=== PATIENT | female | born 1990 | race Caucasian/White ===

== ENCOUNTER 2016-10-26 14:45 | Inpatient (IN) | payer OTHER ==
[~2016-10-26] VITALS: Ht 170.2 cm; Wt 80.5 kg
[~2016-10-26 14:45] MED LIST: FERR27TA; PREN1TAB49
[2016-10-26 15:44] LABS: BASOPHILS % 0.2 % (0.0-2.0); EOSINOPHILS # 0.2 10^3/ul (0.0-0.5); EOSINOPHILS % 1.5 % (0.0-7.0); HEMATOCRIT 35.1 % (37.0-47.0); HEMOGLOBIN 11.9 g/dl (12.0-16.0); LYMPHOCYTES # 1.5 10^3/ul (0.8-2.9); LYMPHOCYTES % 14.9 % (15.0-51.0); MEAN CORPUSCULAR HEMOGLOBIN 29.6 pg (29.0-33.0); MEAN CORPUSCULAR HGB CONC 33.9 g/dl (32.0-37.0); MEAN CORPUSCULAR VOLUME 87.3 fl (82.0-101.0); MONOCYTE # 0.7 10^3/ul (0.3-0.9); MONOCYTES % 7.2 % (0.0-11.0); NEUTROPHILS % 75.8 % (39.0-77.0); PLATELET COUNT 286 10^3/UL (140-415); RED BLOOD COUNT 4.02 10^6/ul (4.20-5.40); RED CELL DISTRIBUTION WIDTH 12.4 % (11.5-14.5); WHITE BLOOD COUNT 10.1 10^3/ul (4.8-10.8)
--- NOTE | 2016-10-26 15:58 | RADRPT ---
PROCEDURE: CERVICAL LENGTH ULTRASOUND CLINICAL INDICATION: Pre-term labor. TECHNIQUE: Trans-vaginal imaging of the cervical canal was performed utilizing ramachandran-scale imaging. Sagittal and transverse images were obtained. Trans-abdominal images were also obtained. The michele ges were reviewed on a PACS workstation. COMPARISON: None. FINDINGS: The cervix is closed with a length of 4.9 cm. There is a single live intrauterine . heart rate is 154 beats per minute. Position is cephalic and placenta is posterior, grade 1. IMPRESSION: 1. Cervical length measures 4.9 cm. RPTAT: HFN .Shawnee Joy MD, MD Date Time Electronically viewed and signed by .Shawnee Joy MD, MD on 10/26/2016 15:57 .N/
[2016-10-26 16:05] LABS: ADD UMIC YES; UR ASCORBIC ACID NEGATIVE (NEGATIVE); UR BILIRUBIN (Dip) NEGATIVE (NEGATIVE); UR BLOOD (Dip) 1+ mg/dL (NEGATIVE); UR CLARITY SLIGHTLY CLOUDY (CLEAR); UR COLOR YELLOW (YELLOW); UR GLUCOSE (Dip) NEGATIVE (NEGATIVE); UR KETONES (Dip) NEGATIVE (NEGATIVE); UR LEUKOCYTE ESTERASE (Dip) 2+ Leu/ul (NEGATIVE); UR MUCUS FEW /HPF (NONE SEEN); UR NITRITE (Dip) NEGATIVE (NEGATIVE); UR RBC 3 /HPF (0-5); UR SPECIFIC GRAVITY (Dip) 1.026 (1.003-1.030); UR SQUAMOUS EPITHELIAL CELL FEW /HPF (FEW); UR TOTAL PROTEIN (Dip) 1+ mg/dl (NEGATIVE); UR UROBILINOGEN (Dip) NEGATIVE (NEGATIVE)
--- NOTE | 2016-10-26 17:27 | PN ---
Triage Information Date/Time Reason for visit: Abd/pelvic pain Weeks of Gestation 33 weeks /Para Diabetes: none Hypertention: none Objective Heart Rate: 130's Heart Rate Comments Two episode of heart decelerations noted Contractions: None Exam Cervix closed Results/Medications Result Diagram: 10/26/16 1512 Results 24 hrs Laboratory Tests Test 10/26/16 15:10 10/26/16 15:12 Urine Color YELLOW Urine Clarity SLIGHTLY CLOUDY A Urine pH 6.0 Urine Specific [place] 1.026 Urine Ketones NEGATIVE Urine Nitrite NEGATIVE Urine Bilirubin NEGATIVE Urine Urobilinogen NEGATIVE Urine Leukocyte Esterase 2+ H Urine Microscopic RBC 3 Urine Microscopic WBC 16 H Urine Squamous Epithelial Cells FEW Urine Mucus FEW A Urine Hemoglobin 1+ H Urine Glucose NEGATIVE Urine Total Protein 1+ H White Blood Count 10.1 Red Blood Count 4.02 L Hemoglobin 11.9 L Hematocrit 35.1 L Mean Corpuscular Volume 87.3 Mean Corpuscular Hemoglobin 29.6 Mean Corpuscular Hemoglobin Concent 33.9 Red Cell Distribution Width 12.4 Platelet Count 286 Mean Platelet Volume 10.0 Neutrophils % 75.8 Lymphocytes % 14.9 L Monocytes % 7.2 Eosinophils % 1.5 Basophils % 0.2 Nucleated Red Blood Cells % 0.0 Neutrophils # (Manual) 7.6 H Lymphocytes # 1.5 Monocytes # 0.7 Eosinophils # 0.2 Basophils # 0.0 Nucleated Red Blood Cells # 0.0 Imaging Results Cervical length 4.9 cm Disposition: Assessment/Plan No sign of labor. Continue to monitor heart tones. BPP to be done. OSMIN MARTINEZ MD Oct 26, 2016 17:27
--- NOTE | 2016-10-26 17:40 | RADRPT ---
PROCEDURE: US OB biophysical profile. CLINICAL INDICATION: evaluation TECHNIQUE: Multiple sonographic images of the pelvis were obtained. The images were reviewed on a PACS workstation. COMPARISON: No prior studies are available for comparison. FINDINGS: There is a single viable intrauterine gestation. Cardiac activity is present with 148 beats per min daniel. There is a vertex presentation. The placenta is posterior and fundal in location. There is no evidence of placental abruption. There is a normal amount of amniotic fluid with an CARRIE = 11.5 cm. Biophysical profile: movement 2/2 tone 2/2. breathing 2/2 CARRIE 2/2 Total 09/23 RPTAT: AA . IMPRESSION: Normal biophysical profile. Physician Emma Date Time Electronically viewed and signed by Physician Emma on 10/26/2016 17:40 /
[2016-10-26 20:54] VITALS: Ht 170.2 cm; Wt 80.5 kg
[2016-10-26 20:56] VITALS: BP 126/56; PULSE 75; RESP 18
[2016-10-27] MEDS: LACTATED RINGER'S 1,000 ML IV PRN ×3 (02:07→17:07)
[2016-10-27] MEDS: PRENATAL VITAMIN PO SCH (09:14)
--- NOTE | 2016-10-27 15:18 | RADRPT ---
PROCEDURE: OB ultrasound CLINICAL INDICATION: heart rate decelerations TECHNIQUE: Multiple transverse and longitudinal OB images of the pelvis were obtained. The images were reviewed on a high-resolution PACS workstation. COMPARISON: 10/26/2016 FINDINGS: A single live intrauterine is seen. The presentation is transverse and right maternal. Th e placenta is grade 2 and fundal and posterior in location. No evidence of placenta abruption or pre via is seen. The heart rate is 123 beats per minute. The amniotic fluid index is 12.97 cm. movement 2 tone 2 breathing 2 Amniotic fluid 2 IMPRESSION: Biophysical profile of 09/23. RPTAT: HPNM Physician Hoda Date Time Electronically viewed and signed by Physician Hoda on 10/27/2016 15:18 /
--- NOTE | 2016-10-27 19:21 | HP ---
Date/Time of Note Date/Time of Note DATE: 10/27/16 TIME: 19:16 OB - History Hx of Present Chief Complaint: pelvic pain Estimated Due Date: Dec 10, 2016 : 2 Para: 1 Spontaneous : 0 Therapeutic : 0 Care: Other (records not available) Ultrasounds: Other (records not available) Obstetrical Complications: None Medical Complications: None Past Family/Social History * Past Medical, Surgical, Family and Obstetric Histories reviewed from chart. OB Admission Exam Vital Signs Vital Signs Vital Signs Date Time Temp Pulse Resp B/P Pulse Ox O2 Delivery O2 Flow Rate FiO2 10/26/16 20:56 98.2 75 18 126/56 Room Air Physical Exam HEENT: WNL Heart: Rhythm Normal Lungs: Clear, Equal Abdomen: WNL Extremities: Normal Reflexes: Normal Heart Rate: 130's Accelerations: Accelerations Present Decelerations: Prolonged Decelerations Varibility: Moderate Contractions on Admission: None Last 72 hours Lab Results CBC & BMP 10/26/16 15:12 OB Assessment/Plan Reason for admission: other ( heart decelerations) Plan: Other Other plan: Admit Continuous monitoring Perinatology consult OSMIN MARTINEZ MD Oct 27, 2016 19:20
--- NOTE | 2016-10-27 19:23 | QN ---
Documentation Comment No complaint Afebrile VSS Strip Reactive with rare heart decelerations Per recommendation of Perinatology continue to monitor. OSMIN MARTINEZ MD Oct 27, 2016 19:23
--- NOTE | 2016-10-27 22:39 | NEURPT ---
DATE: 10/27/2016 HISTORY: The patient presented with complaining of pelvic pressure. However, it was determined that she is not in labor, but upon monitoring she had some spontaneous deceleration. fetus has some spontaneous deceleration and the decision was made to keep the patient in-house. Overnight she had about 3 or 4 spontaneous deceleration, but in general heart tones reassuring. RECOMMENDATION: I do recommend to keep the patient in-house for at least 24 more hours and to monitor for the frequency of this spontaneous Decels. At this time delivery is not recommended. Dictated By: Lesli Thornton MD /yomaira/mitch /Document#: [id number]
[2016-10-28 09:23] LABS: ADD UMIC YES; UR ASCORBIC ACID NEGATIVE (NEGATIVE); UR BILIRUBIN (Dip) NEGATIVE (NEGATIVE); UR BLOOD (Dip) NEGATIVE (NEGATIVE); UR CLARITY CLEAR (CLEAR); UR COLOR YELLOW (YELLOW); UR GLUCOSE (Dip) NEGATIVE (NEGATIVE); UR KETONES (Dip) NEGATIVE (NEGATIVE); UR LEUKOCYTE ESTERASE (Dip) 2+ Leu/ul (NEGATIVE); UR MUCUS FEW /HPF (NONE SEEN); UR NITRITE (Dip) NEGATIVE (NEGATIVE); UR RBC 2 /HPF (0-5); UR SPECIFIC GRAVITY (Dip) 1.012 (1.003-1.030); UR SQUAMOUS EPITHELIAL CELL FEW /HPF (FEW); UR TOTAL PROTEIN (Dip) NEGATIVE (NEGATIVE); UR UROBILINOGEN (Dip) NEGATIVE (NEGATIVE)
[2016-10-28] MEDS: PRENATAL VITAMIN PO SCH (09:41)
[2016-10-28] MEDS ORDERED: BETAMET NA PHOS/AC(6 MG/ML) 5ML INJ IM ONE (12:30)
[2016-10-28] MEDS ORDERED: BETAMET NA PHOS/AC(6 MG/ML) 5ML INJ ONE (12:47)
--- NOTE | 2016-10-28 20:19 | QN ---
Documentation Comment No complaint Afebrile VSS Strip Reactive with occasional heart decelerations Case discussed with Dr Thornton who recommends to keep the patient in hospital and togive acourse of betamethasone. OSMIN MARTINEZ MD Oct 28, 2016 20:18
--- NOTE | 2016-10-29 05:33 | NEURPT ---
DATE: 10/28/2016 SUBJECTIVE DATA: I reviewed heart tone and the frequency of the spontaneous decelerations have decreased. However, the baby still has occasional deceleration, lasting for about 2-3 minutes. I do believe this is secondary to nuchal cord. Given the fact that she still continues to have a spontaneous deceleration, lasting a long time and dropping about 40 or 50 below baseline, I do recommend patient to stay inpatient until heart tone continues to be reassuring; however, without those decelerations. Also, I do recommend administration of betamethasone. So until further notice, patient is to stay in- house for monitoring. Dictated By: Lesli Thornton MD /yomaira/joao /Document#: [id number]
--- NOTE | 2016-10-29 05:37 | RADRPT ---
PROCEDURE: OB ultrasound for biophysical profile CLINICAL INDICATION: Deceleration TECHNIQUE: Multiple sonographic images of the pelvis were obtained. Transabdominal views of the g ravid uterus are available for review. The images were reviewed on a PACS workstation. COMPARISON: None FINDINGS: breathing movement = 2/2 tone = 2/2 motion = 2/2 CARRIE = 2/2 CARRIE = 9.2 cm Single live intrauterine with cardiac activity of 144 bpm. position is cephal ic. The placenta is posterior. IMPRESSION: 1. Single live intrauterine gestation. 2. Biophysical profile = 8/8. 3. CARRIE = 9.2 cm. RPTAT: HH .Allison Bar MD, MD Date Time Electronically viewed and signed by .Allison Bar MD, on 10/29/2016 05:36 .G/
--- NOTE | 2016-10-29 09:16 | RADRPT ---
PROCEDURE: US OB. CLINICAL INDICATION: Decelerations TECHNIQUE: Multiple sonographic images of the pelvis were obtained. Transabdominal imaging only w as performed. The images were reviewed on a PACS workstation. COMPARISON: Ultrasound, 10/29/2016 FINDINGS: Single intrauterine gestation. Cephalic presentation. heart rate is 129 bpm. Measurements were made in order to determine age. The results are as follows: BPD = 8.24 cm HC = 30.15 cm AC = 27.71 cm FL = 5.59 cm Gestational age is 32 weeks 0 days and BRII is 12/24/2016 by ultrasound criteria. Gestational age is 34 weeks 0 days and BRII is 12/10/2016 by LMP. EFW = 1745 g +/- 262 g (less than 3 %). The placenta is posterior fundal. There is no evidence for an abruption or placenta previa. IMPRESSION: 1. Single live intrauterine gestation of approximately 32 weeks 0 days by ultrasound criteria. RPTAT: PP .Armand Bragg MD, MD Date Time Electronically viewed and signed by .Armand Bragg MD, on 10/29/2016 09:16 .R/
--- NOTE | 2016-10-29 12:16 | RADRPT ---
PROCEDURE: Umbilical artery Doppler. CLINICAL INDICATION: Small for gestational age. TECHNIQUE: Multiple sonographic images of the gravid uterus were obtained utilizing ramachandran-scale michele ging. Sagittal and transverse images were obtained. Umbilical artery Doppler was performed. The i mages were reviewed on a PACS workstation. COMPARISON: No prior studies are available for comparison. FINDINGS: There is a single live intrauterine . heart rate is 116 beats per minute. Position is cephalic and placenta is posterior grade 1. The umbilical artery systolic to diastolic ratio is 2.8. IMPRESSION: 1. The umbilical artery systolic to diastolic ratio is 2.8. RPTAT: QQ .Zach Rogel MD, MD Date Time Electronically viewed and signed by .Zach Rogel MD, MD on 10/29/2016 12:15 .R/
[2016-10-29] MEDS ORDERED: BETAMET NA PHOS/AC(6 MG/ML) 5ML INJ IM ONE (12:55)
--- NOTE | 2016-10-29 13:03 | QN ---
Documentation Job number: Neonatology consultation Comment I was asked to talk with his mother who was 34 weeks by estimated gestational age and 32 weeks by ultrasound with an estimated weight of 1745 g 262 g. Mother is a 25-year-old 2 para 1 with a blood type B+, HBsAg negative HIV negative and GBS not done. RPR was also not recorded. Mother was admitted with significant decelerations and perinatologist consultation was obtained and the nuchal cord was noted. Mother received the first dose of betamethasone on 10/28 at 1309 hrs. and will receive the second dose today. I discussed with the mother about the fetus being about 34 weeks with risk for respiratory distress including transient tachypnea of the and hyaline membrane disease. Discussed the treatment options including oxygen administration and bubble CPAP if has more respiratory distress and surfactant administration if clinically indicated and needed. Also discussed about low incidence of apnea prematurity. Discussed about the to be n.p.o. initially to be started on IV nutrition and subsequently to be started on tube feedings and increase gradually and monitor for feeding intolerance as well as gastroesophageal reflux. Also discussed about increased risk of infection as well as risk for hyperbilirubinemia and treatment with phototherapy and developed light imbalance. Discussed about length of stay of 2-3 weeks or longer depending on the infant's feeding ability, maintaining temperature off outside the [place] and being able to eat and gaining weight.Discussed about good prognosis and answered all mother's questions. Discussion was complete and concluded after mother had no further questions. Thank you for involving us in the care of the infant. CHHAYA GARCIA MD Oct 29, 2016 13:03
--- NOTE | 2016-10-29 13:24 | QN ---
Documentation Comment No complaint Afebrile VSS Strip Reactive with occasional heart deceleration Continue care per Perinatology. OSMIN MARTINEZ MD Oct 29, 2016 13:24
[2016-10-29] MEDS: LACTATED RINGER'S 1,000 ML IV SCH (13:26)
[2016-10-29 13:46] LABS: BASOPHILS % 0.1 % (0.0-2.0); HEMATOCRIT 31.9 % (37.0-47.0); HEMOGLOBIN 10.9 g/dl (12.0-16.0); LYMPHOCYTES # 1.4 10^3/ul (0.8-2.9); LYMPHOCYTES % 11.4 % (15.0-51.0); MEAN CORPUSCULAR HEMOGLOBIN 30.2 pg (29.0-33.0); MEAN CORPUSCULAR HGB CONC 34.2 g/dl (32.0-37.0); MEAN CORPUSCULAR VOLUME 88.4 fl (82.0-101.0); MEAN PLATELET VOLUME 10.2 fl (7.4-10.4); MONOCYTE # 0.7 10^3/ul (0.3-0.9); MONOCYTES % 5.8 % (0.0-11.0); NEUTROPHIL # 10.3 10^3/ul (1.6-7.5); NEUTROPHILS % 82.1 % (39.0-77.0); PLATELET COUNT 292 10^3/UL (140-415); RED BLOOD COUNT 3.61 10^6/ul (4.20-5.40); RED CELL DISTRIBUTION WIDTH 12.2 % (11.5-14.5); WHITE BLOOD COUNT 12.6 10^3/ul (4.8-10.8)
[2016-10-29 14:11] LABS: INR 1.01; PROTIME 13.3 Sec (12.2-14.2)
[2016-10-29 14:12] LABS: PARTIAL THROMBOPLASTIN TIME 25.8 Sec (25.0-35.0)
[2016-10-29] MEDS: PRENATAL VITAMIN PO SCH (16:55)
--- NOTE | 2016-10-30 05:23 | CONS ---
DATE OF ADMISSION: 10/26/2016 DATE OF CONSULTATION: 10/29/2016 HISTORY OF PRESENT ILLNESS: I reviewed the patient's strip again. The frequency of decelerations has increased. However, overall in between baby is reassuring. She had been experiencing some contractions overnight. However, she is currently stable. She was given betamethasone, the first dose yesterday and the second dose is due at 1 p.m. today. She has had urinary tract infection in the past, which has not appropriately been treated. Urine culture is pending. RECOMMENDATIONS: Continue with the same management, second dose of betamethasone. Follow up on the urine culture and treat as needed. Also, in case she does experience contractions regularly, magnesium sulfate can be considered as long as it is given 24 hours after the second dose of betamethasone. Now if the frequency of the decelerations increases or overall in between decelerations heart tone is nonreassuring, then delivery should be considered. Otherwise, we will continue with expected management in-house. Dictated By: Lesli Thornton MD /yomaira/carlos alberto /Document#: [id number]
[2016-10-30] MEDS: FERROUS SULFATE (EC) 325 MG TAB PO SCH ×2 (09:29→21:28)
[2016-10-30] MEDS: PRENATAL VITAMIN PO SCH (09:30)
--- NOTE | 2016-10-30 20:27 | QN ---
Documentation Comment No complaint Afebrile VSS Strip Reactive with rare heart decelerations Will start IV vancomycin for UTI Continue care per Perinatology OSMIN MARTINEZ MD Oct 30, 2016 20:27
[2016-10-30] MEDS ORDERED: VANCOMYCIN IV PER PHARMACY XX SCH (20:30)
[2016-10-30] MEDS ORDERED: VANCOMYCIN 1.5 GM in SOD CHLORIDE 0.9% 250 ML IVPB SCH (21:00)
[2016-10-30] MEDS: LACTATED RINGER'S 1,000 ML IV SCH (21:32)
[2016-10-30 21:57] LABS: CREATININE 0.51 mg/dl (0.44-1.00)
[2016-10-31] MEDS: VANCOMYCIN 1 GM in NS 250 ML IVPB SCH ×3 (05:05→21:21)
[2016-10-31] MEDS: PRENATAL VITAMIN PO SCH (09:00)
[2016-10-31] MEDS: FERROUS SULFATE (EC) 325 MG TAB PO SCH ×2 (09:00→21:05)
[2016-10-31] MEDS: LACTATED RINGER'S 1,000 ML IV SCH (17:10)
--- NOTE | 2016-10-31 19:34 | QN ---
Documentation Comment No complaint Afebrile VSS Strip Reactive with rare heart deceleration Continue in hospital care per Perinatology. OSMIN MARTINEZ MD Oct 31, 2016 19:34
[2016-11-01] MEDS: VANCOMYCIN 1.5 GM in SOD CHLORIDE 0.9% 250 ML IVPB SCH ×3 (04:01→20:31)
--- NOTE | 2016-11-01 07:26 | RADRPT ---
PROCEDURE: US biophysical profile. CLINICAL INDICATION: cardiac deceleration. TECHNIQUE: Multiple sonographic images of the uterus were obtained. The images were revi ewed on a PACS workstation. COMPARISON: No prior studies are available for comparison. FINDINGS: There is a single live intrauterine gestation. heart rate is 125 beats per minute. The position is breech. The placenta is posterior grade 1 with no abruption or previa. The CARRIE is 12.2 cm. (Normal = 5-20 cm.) Breathing Movement: 2 Gross Body Movement: 2 Tone: 2 Qualitative Amniotic Fluid Volume: 2 TOTAL: 8 IMPRESSION: 1. The biophysical score is 8/8. 2. Position is breech. RPTAT: QQ .Zach Rogel MD, Date Time Electronically viewed and signed by .Zach Rogel MD, on 11/01/2016 07:25 .R/
[2016-11-01] MEDS: FERROUS SULFATE (EC) 325 MG TAB PO SCH ×2 (09:03→21:00)
[2016-11-01] MEDS: PRENATAL VITAMIN PO SCH (09:03)
[2016-11-01] MEDS: LACTATED RINGER'S 1,000 ML IV SCH (13:00)
--- NOTE | 2016-11-01 18:02 | QN ---
Documentation Comment No complaint Afebrile VSS Strip Reactive with rare deceleration BPP 8/8 Continue in hospital care per Perinatology. OSMIN MARTINEZ MD Nov 01, 2016 18:02
[2016-11-02] MEDS: VANCOMYCIN 1.5 GM in SOD CHLORIDE 0.9% 250 ML IVPB SCH ×3 (04:08→20:56)
[2016-11-02] MEDS: LACTATED RINGER'S 1,000 ML IV SCH ×2 (06:32→16:40)
[2016-11-02] MEDS: PRENATAL VITAMIN PO SCH (09:15)
[2016-11-02] MEDS: FERROUS SULFATE (EC) 325 MG TAB PO SCH ×2 (09:15→21:00)
--- NOTE | 2016-11-02 17:51 | QN ---
Documentation Comment No complaint Afebrile VSS Strip reactive with occasional heart decelerations last night Continue care per Perinatology. OSMIN MARTINEZ MD Nov 02, 2016 17:51
[2016-11-03] MEDS: VANCOMYCIN 1.5 GM in SOD CHLORIDE 0.9% 250 ML IVPB SCH ×3 (04:18→20:25)
[2016-11-03] MEDS: FERROUS SULFATE (EC) 325 MG TAB PO SCH ×2 (09:12→20:35)
[2016-11-03] MEDS: PRENATAL VITAMIN PO SCH (09:12)
[2016-11-03] MEDS: LACTATED RINGER'S 1,000 ML IV SCH (11:01)
--- NOTE | 2016-11-03 20:47 | QN ---
Documentation Comment No complaint Afebrile VSS Strip Reactive with occasional heart decelerations Continue with in hospital care per Perinatology. OSMIN MARTINEZ MD Nov 03, 2016 20:47
[2016-11-04] MEDS: VANCOMYCIN 1.5 GM in SOD CHLORIDE 0.9% 250 ML IVPB SCH ×3 (03:50→20:50)
[2016-11-04] MEDS: LACTATED RINGER'S 1,000 ML IV SCH (06:33)
[2016-11-04] MEDS: FERROUS SULFATE (EC) 325 MG TAB PO SCH ×2 (09:55→21:27)
[2016-11-04] MEDS: PRENATAL VITAMIN PO SCH (09:56)
--- NOTE | 2016-11-04 11:19 | RADRPT ---
PROCEDURE: US OB biophysical profile. CLINICAL INDICATION: decreased movements, IUGR TECHNIQUE: Multiple sonographic images of the pelvis were obtained. The images were reviewed on a PACS workstation. COMPARISON: No prior studies are available for comparison. FINDINGS: There is a single viable intrauterine gestation. Cardiac activity is present with 142 beats per min daniel. There is a vertex presentation. The placenta is posterior. There is no evidence of placental abruption. There is a normal amount of amniotic fluid with an CARRIE = 11.5 cm. Biophysical profile: movement 2/2 tone 2/2. breathing 2/2 CARRIE 2/2 Total 09/23 RPTAT: AA . IMPRESSION: Normal biophysical profile. . .Tyrel Joshi MD, MD Date Time Electronically viewed and signed by .Tyrel Joshi MD, MD on 11/04/2016 11:19 .S/
--- NOTE | 2016-11-04 12:25 | QN ---
Documentation Comment No complaint Afebrile VSS Strip Reactive with occasional heart deceleration BPP 8/8 Continue care per Perinatology. OSMIN MARTINEZ MD Nov 04, 2016 12:25
[2016-11-05] MEDS: LACTATED RINGER'S 1,000 ML IV SCH ×2 (02:05→22:30)
[2016-11-05] MEDS: VANCOMYCIN 1.5 GM in SOD CHLORIDE 0.9% 250 ML IVPB SCH ×3 (04:25→19:54)
--- NOTE | 2016-11-05 07:48 | RADRPT ---
PROCEDURE: Limited OB ultrasound CLINICAL INDICATION: IUGR TECHNIQUE: Sonographic evaluation to assess the umbilical artery was performed. Transabdominal im aging of the gravid uterus was performed. COMPARISON: OB ultrasound dated 11/04/2016 FINDINGS: There is a single live intrauterine with cardiac activity, with a heart rate o f 129 bpm. The peak systolic velocity at the level of the cord insertion is 56.2 cm/sec. The end-d iastolic velocity is 21.5 cm/sec. The S/D ratio is 2.6. IMPRESSION: 1. Single live intrauterine . 2. Peak systolic velocity of 56.2 cm/s, end-diastolic velocity of 21.5 cm/s, and S/D ratio of 2.6. RPTAT: HH .Allison Bar MD, Date Time Electronically viewed and signed by .Allison Bar MD, on 11/05/2016 07:48 .G/
[2016-11-05] MEDS: PRENATAL VITAMIN PO SCH (08:41)
[2016-11-05] MEDS: FERROUS SULFATE (EC) 325 MG TAB PO SCH ×2 (08:41→20:51)
[2016-11-05] MEDS: AL HYDROX/MG HYDROX/SIMETH 30 ML CUP PO PRN (09:00)
--- NOTE | 2016-11-05 15:41 | QN ---
Documentation Comment No complaint Afebrile VSS Strip Reactive Continue with present care. OSMIN MARTINEZ MD Nov 05, 2016 15:41
[2016-11-06] MEDS: VANCOMYCIN 1.5 GM in SOD CHLORIDE 0.9% 250 ML IVPB SCH ×3 (04:02→20:06)
[2016-11-06] MEDS: PRENATAL VITAMIN PO SCH (09:57)
[2016-11-06] MEDS: FERROUS SULFATE (EC) 325 MG TAB PO SCH ×2 (09:57→20:54)
--- NOTE | 2016-11-06 16:59 | QN ---
Documentation Comment iup 35 weeks IUGR vss cat I tracing a/p iup 35 weeks continue care FILIPPO HINES MD Nov 06, 2016 16:59
[2016-11-06] MEDS: LACTATED RINGER'S 1,000 ML IV SCH (18:17)
[2016-11-07] MEDS: LACTATED RINGER'S 1,000 ML IV SCH (00:47)
[2016-11-07] MEDS: AL HYDROX/MG HYDROX/SIMETH 30 ML CUP PO PRN (08:38)
[2016-11-07] MEDS: PRENATAL VITAMIN PO SCH (08:38)
[2016-11-07] MEDS: FERROUS SULFATE (EC) 325 MG TAB PO SCH ×2 (08:38→23:58)
--- NOTE | 2016-11-07 11:08 | RADRPT ---
PROCEDURE: US OB biophysical profile. CLINICAL INDICATION: decreased movements TECHNIQUE: Multiple sonographic images of the pelvis were obtained. The images were reviewed on a PACS workstation. COMPARISON: US PELVIS 11/04/2016 FINDINGS: There is a single viable intrauterine gestation. Cardiac activity is present with 166 beats per min [place]. There is a breech presentation. The placenta is posterior. There is no evidence of placental abruption. There is a normal amount of amniotic fluid with an CARRIE = 12.5 cm. Biophysical profile: movement 2/2 tone 2/2. breathing 2/2 CARRIE 2/2 Total 09/23 RPTAT: AA . IMPRESSION: Normal biophysical profile. . .Tyrel Joshi MD, MD Date Time Electronically viewed and signed by .Tyrel Joshi MD, MD on 11/07/2016 11:08 .S/
--- NOTE | 2016-11-07 19:16 | QN ---
Documentation Comment No complaint Afebrile VSS Strip reactive BPP 09/23 Continue care per Perinatology. OSMIN MARTINEZ MD Nov 07, 2016 19:16
[2016-11-08] MEDS: FERROUS SULFATE (EC) 325 MG TAB PO SCH ×2 (08:57→20:59)
[2016-11-08] MEDS: PRENATAL VITAMIN PO SCH (08:57)
--- NOTE | 2016-11-08 17:42 | QN ---
Documentation Comment No complaint Afebrile VSS Strip Reactive with occasional heart decelerations Continue care per Perinatology. OSMIN MARTINEZ MD Nov 08, 2016 17:42
[2016-11-09] MEDS: FERROUS SULFATE (EC) 325 MG TAB PO SCH ×2 (08:54→20:51)
[2016-11-09] MEDS: PRENATAL VITAMIN PO SCH (08:54)
--- NOTE | 2016-11-09 16:45 | QN ---
Documentation Comment No complaint Afebrile VSS Strip Reactive with occasional deceleration Continue present care. OSMIN MARTINEZ MD Nov 09, 2016 16:45
--- NOTE | 2016-11-10 07:36 | RADRPT ---
PROCEDURE: OB ultrasound for biophysical profile CLINICAL INDICATION: Evaluate well-being. TECHNIQUE: Multiple sonographic images of the pelvis were obtained. Transabdominal view of the gr avid uterus are available for review. The images were reviewed on a PACS workstation. COMPARISON: 11/07/2016. FINDINGS: breathing movement = 2/2 tone = 2/2 motion = 2/2 Quantitative amniotic fluid volume = 2/2 CARRIE = 12.5 cm Single live intrauterine with cardiac activity at 144 beats per minute. There is a posterior placenta without previa or abruption. IMPRESSION: 1. Single living intrauterine gestation in cephalic position. 2. Biophysical profile = 8/8. 3. CARRIE = 12.5 cm. RPTAT: AACC Physician Soren Date Time Electronically viewed and signed by Physician Soren on 11/10/2016 07:35 /
[2016-11-10] MEDS: FERROUS SULFATE (EC) 325 MG TAB PO SCH ×2 (09:09→21:00)
[2016-11-10] MEDS: PRENATAL VITAMIN PO SCH (09:09)
--- NOTE | 2016-11-10 21:01 | QN ---
Documentation Comment No complaint Afebrile VSS Strip Reactive BPP 09/23 Continue with in hospital care per Perinatology. OSMIN MARTINEZ MD Nov 10, 2016 21:01
[2016-11-11] MEDS: FERROUS SULFATE (EC) 325 MG TAB PO SCH ×2 (08:36→21:09)
[2016-11-11] MEDS: PRENATAL VITAMIN PO SCH (08:36)
--- NOTE | 2016-11-11 17:50 | QN ---
Documentation Comment Afebrile. Vital signs are stable, Denies pelvic, abdominal pain, or contraction We will continue expecting management MERON AGUERO MD Nov 11, 2016 17:50
--- NOTE | 2016-11-12 08:26 | RADRPT ---
PROCEDURE: Umbilical artery Doppler. CLINICAL INDICATION: Small for gestational age. TECHNIQUE: Multiple sonographic images of the gravid uterus were obtained utilizing ramachandran-scale michele ging. Sagittal and transverse images were obtained. Umbilical artery Doppler was performed. The i mages were reviewed on a PACS workstation. COMPARISON: No prior studies are available for comparison. FINDINGS: There is a single live intrauterine . heart rate is 146 beats per minute. The umbilical artery systolic to diastolic ratio is 2.6. Position is cephalic. Placenta is posterior grade II. IMPRESSION: 1. The umbilical artery systolic to diastolic ratio is 2.6. RPTAT: QQ .Zach Rogel MD, MD Date Time Electronically viewed and signed by .Zach Rogel MD, MD on 11/12/2016 08:25 .R/
[2016-11-12] MEDS: FERROUS SULFATE (EC) 325 MG TAB PO SCH ×2 (08:50→21:20)
[2016-11-12] MEDS: PRENATAL VITAMIN PO SCH (08:50)
--- NOTE | 2016-11-12 15:28 | RADRPT ---
PROCEDURE: Biophysical profile CLINICAL INDICATION: distress. Decelerations. TECHNIQUE: Color and ramachandran-scale ultrasound images of an intrauterine gestation were obtained. COMPARISON: November 10, 2016 FINDINGS: A single live intrauterine gestation is identified in breech position with an estimated heart rate of 157 beats per minute. The placenta is located posteriorly and has a grade up to. The cervi x obscured by body shadows. No evidence of abruption identified. CARRIE is 13.0 cm. movement 2/2. tone 2/2. breathing movement 2/2. Qualitative AFV 2/2 Total biophysical profile 09/23 IMPRESSION: 09/23 biophysical profile. RPTAT: AA .Nicolas Lebron MD, Date Time Electronically viewed and signed by .Nicolas Lebron MD, MD on 11/12/2016 15:28 .P/
--- NOTE | 2016-11-12 18:23 | QN ---
Documentation Comment Vital signs are stable, no change in her condition. MERON AGUERO MD Nov 12, 2016 18:23
[2016-11-13] MEDS: FERROUS SULFATE (EC) 325 MG TAB PO SCH ×2 (09:55→21:51)
[2016-11-13] MEDS: PRENATAL VITAMIN PO SCH (09:55)
--- NOTE | 2016-11-13 15:15 | RADRPT ---
PROCEDURE: US OB. CLINICAL INDICATION: Size and dates , IUGR TECHNIQUE: Multiple sonographic images of the pelvis and gravid uterus were obtained. The images were reviewed on a PACS workstation. COMPARISON: US PELVIS 11/12/2016 FINDINGS: There is a single viable intrauterine gestation. Cardiac activity is present with 144 beats per min daniel. There is a vertex presentation. The placenta is posterior. There is no evidence for an abruption or placenta previa. Measurements were made in order to determine age. The results are as follows: BPD =8.6 cm HC =31.2 cm AC =31 cm FL =6.8 cm Estimated gestational age of approximately 35 weeks and 0 days based on ultrasound measurements. Clinical age: 36 weeks and 1 day. The estimated date of delivery is 12/18/16, based on ultrasound measurements. The EFW = 2553 g, 21%, based on LMP age. RPTAT: AA IMPRESSION: Single viable intrauterine gestation of approximately 35 weeks and 0 days based on ultrasound measu rements. .Tyrel Joshi MD, Date Time Electronically viewed and signed by .Tyrel Joshi MD, on 11/13/2016 15:15 .S/
--- NOTE | 2016-11-13 18:09 | QN ---
Documentation Comment vss had 2 variable decels in the last 24 hours, nst reactive good movement. MERON AGUERO MD Nov 13, 2016 18:09
[2016-11-14] MEDS ORDERED: MISOPROSTOL 200 MCG TAB PR PRN (11:30)
[2016-11-14] MEDS ORDERED: METHYLERGONOVINE 0.2 MG INJ IM PRN (11:30)
[2016-11-14] MEDS ORDERED: CARBOPROST 250 MCG INJ IM PRN (11:30)
[2016-11-14] MEDS ORDERED: OXYTOCIN 30 UNITS/LR 500 ML IV PRN (11:30)
[2016-11-14 11:46] LABS: BASOPHILS % 0.2 % (0.0-2.0); EOSINOPHILS # 0.1 10^3/ul (0.0-0.5); EOSINOPHILS % 0.8 % (0.0-7.0); HEMATOCRIT 37.3 % (37.0-47.0); LYMPHOCYTES # 1.8 10^3/ul (0.8-2.9); LYMPHOCYTES % 17.5 % (15.0-51.0); MEAN CORPUSCULAR HEMOGLOBIN 28.6 pg (29.0-33.0); MEAN CORPUSCULAR HGB CONC 32.2 g/dl (32.0-37.0); MEAN PLATELET VOLUME 9.4 fl (7.4-10.4); MONOCYTE # 0.7 10^3/ul (0.3-0.9); MONOCYTES % 7.3 % (0.0-11.0); NEUTROPHIL # 7.3 10^3/ul (1.6-7.5); NEUTROPHILS % 73.2 % (39.0-77.0); PLATELET COUNT 296 10^3/UL (140-415); RED BLOOD COUNT 4.19 10^6/ul (4.20-5.40); RED CELL DISTRIBUTION WIDTH 14.5 % (11.5-14.5)
[2016-11-14] MEDS: LACTATED RINGER'S 1,000 ML IV SCH ×3 (12:03→22:10)
[2016-11-14 12:06] LABS: INR 0.98
--- NOTE | 2016-11-14 12:12 | PN ---
DATE: 11/14/2016 After reviewing the patient's heart tone strip, it appears that a number of decelerations in frequency have increased significantly, and as such, delivery is recommended. Given the frequency of the decelerations and spontaneity of them, and gestational age of 35 and 5, I do believe the would be the better option for her as I am afraid that the baby will not cause tolerate the contractions. Dictated By: Lesli Thornton MD /yomaira/larry /Document#: [id number]
--- NOTE | 2016-11-14 21:52 | RADRPT ---
PROCEDURE: US biophysical profile. CLINICAL INDICATION: Decreased motion. TECHNIQUE: Multiple sonographic images of the uterus were obtained. The images were revi ewed on a PACS workstation. COMPARISON: No prior studies are available for comparison. FINDINGS: There is a single live intrauterine gestation. heart rate is 141 beats per minute. The position is cephalic. The placenta is posterior grade II with no abruption or previa. The CARRIE is 14.6 cm. (Normal = 5-20 cm.) Breathing Movement: 2 Gross Body Movement: 2 Tone: 2 Qualitative Amniotic Fluid Volume: 2 TOTAL: 8 IMPRESSION: 1. The biophysical score is 8/8. RPTAT: QQ .Zach Rogel MD, MD Date Time Electronically viewed and signed by .Zach Rogel MD, on 11/14/2016 21:51 .R/
[2016-11-15] MEDS: LACTATED RINGER'S 1,000 ML IV SCH ×3 (03:22→12:22)
[2016-11-15] MEDS ORDERED: morphine SULFATE/PF (10 MG/10 ML) INJ ONE (13:01)
[2016-11-15] MEDS ORDERED: FENTAnyl 50 MCG/ML VIAL ONE (13:02)
[2016-11-15] MEDS: CEFAZOLIN 2 GM/50 ML (PMX) 50 ML IV SCH ×2 (13:12→13:36)
[2016-11-15] MEDS ORDERED: ONDANSETRON 4 MG INJ ONE (13:12)
[2016-11-15] MEDS ORDERED: DEXAMETHASONE 4 MG/ML 1 ML INJ ONE (13:12)
[2016-11-15] MEDS ORDERED: MIDAZOLAM 1 MG/ML 2 ML INJ ONE (13:38)
[2016-11-15] MEDS ORDERED: NALOXONE (0.4 MG/ML) INJ IV PRN (14:00)
[2016-11-15] MEDS ORDERED: DIPHENHYDRAMINE 50 MG INJ IV PRN (14:00)
[2016-11-15] MEDS ORDERED: HYDROmorphONE 1 MG/ML SYG IV PRN ×2 (14:00)
[2016-11-15] MEDS ORDERED: ZOLPIDEM 5 MG TAB PO PRN (14:00)
[2016-11-15] MEDS ORDERED: ONDANSETRON 4 MG INJ IV PRN (14:00)
[2016-11-15] MEDS: KETOROLAC 30 MG INJ IV PRN ×2 (15:51→23:04)
--- NOTE | 2016-11-15 16:39 | OPR ---
Operative Report Planned Procedure Free Text/Dictation 37 weeks, complicated with frequent variable deceleration,willard recommended c section delivery Procedure date Nov 15, 2016 Procedure(s) primary c section Performed by see signature line Assisting provider: JOHNATHAN AWAD MD Anesthesiologist: MARY RAHMAN DO Pre-procedure diagnosis 37 weeks ,frequent, multiple variable deceleration since admission to the hospital , perinatologist recommended c section delivery at 37 weeks , Anesthesia Type: spinal Procedure Description Under satisfactory spinal anesthesia, the patient was prepped and draped and placed in a supine position, tilted to the left. Pfannenstiel incision was made , carried through the subcutaneous tissue. Bleeders brought under control with electrocautery. Fascia incised to the length of the incision. Rectus muscles from the fascia, divided midline. Peritoneum exposed, entered through a transverse incision. Exploration of abdomen revealed gravid uterus. Bladder flap was developed. Transverse incision was made in the lower segment of the uterus. Amniotic sac ruptured. clear amniotic fluid noted live baby boy.delivered from OP position[] Nasal oropharyngeal suction was performed. The baby was handed to the team for immediate attention. The placenta was delivered manually intact. Uterine cavity was cleaned with wet sponge and drainage established. Uterus closed in 2 layers using [Monocryl 1] in continuous fashion. Peritoneal cavity irrigated with warm saline. Sponge, needle and instrument count reported to be correct. Abdominal peritoneum closed with2/0chromic catgut continuously. Rectus muscle approximated with [2/0cc]. Fascia closed with NO 1 PDS sub cutaneous tissue repaired with2/0 cc,skin closed with.N SORB EBL 600CC ,pt transferred to in good condition, Post-Procedure Findings: Live Baby boy 9/9 Estimated blood loss: other (600cc) Specimen(s): no Grafts/Implants: no Complication(s): no Pt Condition post procedure: stable Physician Certification I, the undersigned physician, hereby certify that I have discussed the procedure described in this consent form with this patient (or the patient's legal teleservices representative), including: * The risk and benefits of the procedure; * Any adverse reactions that may reasonably be expected to occur; * Any alternative efficacious methods of treatment which may be medically viable ; * The potential problems that may occur during recuperation; * Potential for blood transfusion and associated risks/benefits; and * Any research or economic interest I may have regarding this treatment. I further certify that the patient/legally responsible person was encouraged to ask question and that all questions were answered. MERON AGUERO MD Nov 15, 2016 16:07
[2016-11-15 18:50] VITALS: BP 132/66; PULSE 89; RESP 18
[2016-11-15] MEDS: OXYTOCIN 30 UNITS/LR 500 ML IV SCH ×2 (18:53→23:11)
[2016-11-15] MEDS ORDERED: OXYCODONE/ACETAMINOPHEN (5/325) TAB PO PRN ×2 (19:00)
[2016-11-15] MEDS ORDERED: CARBOPROST 250 MCG INJ IM PRN (19:00)
[2016-11-15] MEDS ORDERED: METHYLERGONOVINE 0.2 MG INJ IM PRN (19:00)
[2016-11-15] MEDS ORDERED: MISOPROSTOL 200 MCG TAB PR PRN (19:00)
[2016-11-15] MEDS ORDERED: OXYTOCIN 30 UNITS/LR 500 ML IV PRN (19:00)
[2016-11-15] MEDS ORDERED: LANOLIN 7 GM TUBE TOP PRN (19:00)
[2016-11-15 20:00] VITALS: BP 121/62; PULSE 77; RESP 18
[2016-11-15] MEDS ORDERED: CEFAZOLIN 1 GM/50 ML (PMX) 50 ML IVPB SCH (21:00)
[2016-11-15] MEDS: SENNA/DOCUSATE NA (8.6MG/50MG) TAB PO SCH (21:21)
[2016-11-16] VITALS: BP 105/54; PULSE 72; RESP 18
[2016-11-16] MEDS: OXYTOCIN 30 UNITS/LR 500 ML IV SCH ×6 (02:40→22:40)
[2016-11-16] MEDS: LACTATED RINGER'S 1,000 ML IV SCH ×2 (03:50→12:17)
[2016-11-16 04:00] VITALS: BP 94/54; PULSE 67; RESP 18
[2016-11-16 07:40] VITALS: BP 108/55; PULSE 84; RESP 16
[2016-11-16 09:02] LABS: BASOPHILS % 0.3 % (0.0-2.0); EOSINOPHILS # 0.1 10^3/ul (0.0-0.5); EOSINOPHILS % 0.4 % (0.0-7.0); HEMATOCRIT 29.4 % (37.0-47.0); HEMOGLOBIN 9.9 g/dl (12.0-16.0); LYMPHOCYTES % 14.5 % (15.0-51.0); MEAN CORPUSCULAR HEMOGLOBIN 29.8 pg (29.0-33.0); MEAN CORPUSCULAR HGB CONC 33.7 g/dl (32.0-37.0); MEAN CORPUSCULAR VOLUME 88.6 fl (82.0-101.0); MEAN PLATELET VOLUME 9.6 fl (7.4-10.4); MONOCYTE # 0.9 10^3/ul (0.3-0.9); MONOCYTES % 6.5 % (0.0-11.0); NEUTROPHIL # 10.6 10^3/ul (1.6-7.5); NEUTROPHILS % 77.9 % (39.0-77.0); PLATELET COUNT 232 10^3/UL (140-415); RED BLOOD COUNT 3.32 10^6/ul (4.20-5.40); RED CELL DISTRIBUTION WIDTH 13.9 % (11.5-14.5); WHITE BLOOD COUNT 13.6 10^3/ul (4.8-10.8)
[2016-11-16] MEDS: SENNA/DOCUSATE NA (8.6MG/50MG) TAB PO SCH ×2 (09:50→20:03)
[2016-11-16] MEDS: KETOROLAC 30 MG INJ IV PRN (09:53)
[2016-11-16 11:45] VITALS: BP 98/57; RESP 16
--- NOTE | 2016-11-16 13:03 | QN ---
Documentation Comment Post day 1 VSS Afebrile Abdomen soft, incision dry, bowel sounds present, lochia normal Extremities normal Ambulation encouraged MERON AGUERO MD Nov 16, 2016 13:03
[2016-11-16] MEDS: HYDROCODONE/APAP (5/325) TAB PO PRN ×4 (15:10→23:45)
[2016-11-16 16:00] VITALS: BP 120/55; PULSE 85; RESP 18
[2016-11-16] MEDS: IBUPROFEN 600 MG TAB PO SCH ×2 (17:47→23:44)
[2016-11-16 20:00] VITALS: BP 112/55; PULSE 84; RESP 18
[2016-11-17 04:00] VITALS: BP 109/55; PULSE 69
[2016-11-17] MEDS: IBUPROFEN 600 MG TAB PO SCH ×4 (05:57→23:51)
[2016-11-17] MEDS: HYDROCODONE/APAP (5/325) TAB PO PRN ×5 (05:57→23:51)
[2016-11-17 08:20] VITALS: BP 108/58; PULSE 78; RESP 19
[2016-11-17] MEDS ORDERED: INFLUENZA VIRUS VACCINE 0.5 ML (DISPENSING) IM* ONE (09:00)
--- NOTE | 2016-11-17 10:06 | PN ---
Date/Time of Note Date/Time of Note DATE: 11/17/16 TIME: 10:05 OB Subjective Subjective Subjective Post day 2 VSS Afebrile Abdomen soft incision dry, bowel sounds, no BM, extremity negative MERON AGUERO MD Nov 17, 2016 10:06
[2016-11-17] MEDS: SENNA/DOCUSATE NA (8.6MG/50MG) TAB PO SCH ×2 (10:07→21:53)
--- NOTE | 2016-11-17 10:20 | QN ---
Documentation Comment Post due to Afebrile VSs Abdomen soft incision dry healing well Bowel sounds present, no be post day 2 MERON AGUERO MD Nov 17, 2016 10:20
[2016-11-17] MEDS ORDERED: NA PHOSPHATE/BIPHOS 133 ML ENEMA PR ONE ×2 (10:30→17:00)
[2016-11-17 16:00] VITALS: BP 131/70; PULSE 94; RESP 18
[2016-11-17 20:00] VITALS: BP 104/55; PULSE 84; RESP 20
[2016-11-18 04:45] VITALS: BP 123/61; PULSE 80; RESP 19
[2016-11-18] MEDS: IBUPROFEN 600 MG TAB PO SCH ×2 (07:00→12:07)
[2016-11-18] MEDS: HYDROCODONE/APAP (5/325) TAB PO PRN ×2 (07:01→12:54)
[2016-11-18 07:45] VITALS: BP 115/56; PULSE 71; RESP 18
[2016-11-18] MEDS ORDERED: DIPHTH/TET/ACEL PERTUSS (ADULT) 0.5 ML VIAL IM* ONE (09:00)
[2016-11-18] MEDS: SENNA/DOCUSATE NA (8.6MG/50MG) TAB PO SCH (09:06)
--- NOTE | 2016-11-18 10:28 | PD.PPDC ---
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
--- NOTE | 2016-11-18 10:32 | DS ---
Date/Time of Note Date/Time of Note DATE: 11/18/16 TIME: 10:29 Discharge Summary Admission/Discharge Info Admit Date/Time Oct 26, 2016 at 18:45 Discharge Date/Time November 18, 2016 at 10:30 AM Discharge Diagnosis Post day3 Patient Condition: Good Procedures Primary Hx of Present Illness 37 weeks nonreassuring heart tracing delivery recommended by the perinatologist by section Hospital Course Satisfactory uneventful Home Meds Reported Medications Ferrous Sulfate (Iron) 1 Tab Tablet 08/22/10 Vits W-Ca,Fe,Fa(<1MG) () 1 Tab Tablet 08/22/10 Follow-up Plan Post instructions given recommended to make appointment to be seen at the clinic in 1 week Primary Care Provider Not On Staff Doctor Time spent on discharge: < 30 minutes MERON AGUERO MD Nov 18, 2016 10:32
== END 2016-11-18 15:14 | disposition home or self-care (01) | DRG 765 ==
LOC: OBT 14:45 → L-D 14:46 → OBG 18:45 → OBT 18:45 → L-D 18:45 → PP1 11-15 18:56
PROVIDERS: ADMIT Obstetrics & Gynecology; ATTEND Obstetrics & Gynecology
PROC: 10D00Z1 Extraction of Products of Conception, Low, Open Approach (ICD-10-PCS; principal; 2016-11-15 13:30)
DX: O76 Abnormality in fetal heart rate and rhythm complicating labor and delivery (principal); O36.5930 Maternal care for other known or suspected poor fetal growth, third trimester, not applicable or unspecified; Z37.0 Single live birth; Z3A.33 33 weeks gestation of pregnancy
CPT/HCPCS: 76815; 76816; 76817; 76818; 76820; 80202; 81001; 82565; 84520; 85025; 85610; 85730; 86592; 86850; 86900; 86901; 87081; 87086; 88307; 90686; 90715; 94760; 99464; G0463; J0690; J0702; J1100; J1170; J1885; J2250; J2274; J2405; J2590; J3010; J3370; J7050; J7120

== ENCOUNTER 2016-11-30 14:49 | Emergency (ER) | payer OTHER ==
[~2016-11-30] VITALS: Ht 170.2 cm; Wt 77.0 kg
[2016-11-30 14:52] VITALS: Ht 170.2 cm; Wt 77.0 kg
--- NOTE | 2016-11-30 15:33 | ERD ---
ER Documentation Chief Complaint Date/Time DATE: 11/30/16 TIME: 15:30 Chief Complaint PELVIC PAIN , VAG BLEED , PAINFUL URINATION , C SECTION 2 WEEKS AGO HPI 26 year old female status post 2 weeks ago presents complaining of painful urination, pelvic pain, hematuria for 2 days. Patient denies fevers, flank pain, nausea, vomiting, diarrhea. Patient states she saw her OBGYN for follow-up and states everything was fine ROS All systems reviewed and are negative except as per history of present illness. Medications Home Meds Active Scripts Cephalexin* (Keflex*) 500 Mg Capsule, 500 MG PO TID for 7 Days, CAP Prov:JEFF LIU PA-C 11/30/16 Reported Medications Ferrous Sulfate (Iron) 1 Tab Tablet 08/22/10 Vits W-Ca,Fe,Fa(<1MG) () 1 Tab Tablet 08/22/10 Allergies Allergies: Coded Allergies: No Known Allergies (Verified Allergy, Unknown, 09/08/10) PMhx/Soc Medical and Surgical Hx: pt denies Medical Hx History of Surgery: Yes () Hx Alcohol Use: No Hx Substance Use: No Hx Tobacco Use: No Smoking Status: Never smoker Physical Exam Vitals Vital Signs Date Time Temp Pulse Resp B/P Pulse Ox O2 Delivery O2 Flow Rate FiO2 11/30/16 14:52 98.9 85 18 128/62 99 Physical Exam Const: WDWN, no acute distress Head: Atraumatic Eyes: Normal Conjunctiva ENT: Normal External Ears, Nose and Mouth. Neck: Full range of motion..~ No meningismus. Resp: Clear to auscultation bilaterally Cardio: Regular rate and rhythm, no murmurs Abd: Soft, non distended. Normal bowel sounds Tender to palpate suprapubic region Skin: incisional site normal Back: No midline or flank tenderness Ext: No cyanosis, or edema Neur: Awake and alert Psych: Normal Mood and Affect Result Diagram: 11/30/16 1620 11/30/16 1620 Results 24 hrs Laboratory Tests Test 11/30/16 15:00 11/30/16 15:55 11/30/16 16:20 Urine Color YELLOW Urine Clarity SLIGHTLY CLOUDY Urine pH 5.0 Urine Specific [place] 1.025 Urine Ketones NEGATIVEmg/dL Urine Nitrite NEGATIVEmg/dL Urine Bilirubin NEGATIVEmg/dL Urine Urobilinogen NEGATIVEmg/dL Urine Leukocyte Esterase TRACELeu/ul Urine Microscopic RBC 4/HPF Urine Microscopic WBC 18/HPF Urine Calcium Oxalate Crystals FEW/HPF Urine Bacteria FEW/HPF Urine Mucus FEW/HPF Urine Hemoglobin 3+mg/dL Urine Glucose NEGATIVEmg/dL Urine Total Protein NEGATIVEmg/dl Bedside Urine pH (LAB) 5.5 Bedside Urine Protein (LAB) Trace Bedside Urine Glucose (UA) Negative Bedside Urine Ketones (LAB) Negative Bedside Urine Blood 3+ Bedside Urine Nitrite (LAB) Negative Bedside Urine Leukocyte Esterase (L Trace White Blood Count 11.010^3/ul Red Blood Count 4.4210^6/ul Hemoglobin 13.2g/dl Hematocrit 39.7% Mean Corpuscular Volume 89.8fl Mean Corpuscular Hemoglobin 29.9pg Mean Corpuscular Hemoglobin Concent 33.2g/dl Red Cell Distribution Width 13.4% Platelet Count 57577^3/UL Mean Platelet Volume 9.9fl Neutrophils % 71.7% Lymphocytes % 18.9% Monocytes % 4.7% Eosinophils % 3.8% Basophils % 0.5% Nucleated Red Blood Cells % 0.0/100WBC Neutrophils # 7.910^3/ul Lymphocytes # 2.110^3/ul Monocytes # 0.510^3/ul Eosinophils # 0.410^3/ul Basophils # 0.110^3/ul Nucleated Red Blood Cells # 0.010^3/ul Sodium Level 143mmol/L Potassium Level 4.0mmol/L Chloride Level 106mmol/L Carbon Dioxide Level 27mmol/L Anion Gap 14 Blood Urea Nitrogen 17mg/dl Creatinine 0.58mg/dl Glucose Level 81mg/dl Calcium Level 9.2mg/dl Total Bilirubin 0.2mg/dl Direct Bilirubin 0.00mg/dl Indirect Bilirubin 0.2mg/dl Aspartate Amino Transf (AST/SGOT) 24IU/L Alanine Aminotransferase (ALT/SGPT) 42IU/L Alkaline Phosphatase 103IU/L Total Protein 7.7g/dl Albumin 3.9g/dl Globulin 3.80g/dl Albumin/Globulin Ratio 1.02 Lipase 108U/L Procedures/MDM 26 year old female status post 2 weeks ago with presents complaining of painful urination, pelvic pain, mild vaginal bleeding for 2 days. Lab work was done, no evidence of anemia. She is hemodynamically stable. An ultrasound was done, radiologist states: Markedly thickened, heterogeneous endometrium. Finding could reflect clotted blood products in the endometrial canal. Retained products of conception cannot be excluded. Consultation with gynecology and potential correlation with dilatation and curettage can be considered. Ovaries not well visualized. If characterization of this structure is needed repeat exam or CT/MRI is recommended. If further characterization of the organs of the pelvis is needed MRI should be considered. I have consulted OB laborist conference coordinator, who told me to place patient on Methergine 0.2mg TID for 3 days and have her follow-up tomorrow with her OB. I have discussed this with the patient and she agrees and will do so. Stable to be discharged home with strict precautions to return Departure Diagnosis: Primary Impression: Acute pain in female pelvis Condition: Stable JEFF LIU PA-C Nov 30, 2016 15:33
[2016-11-30 15:47] LABS: URINE BLOOD (Dip) POC 3+ (NEGATIVE)
--- NOTE | 2016-11-30 16:28 | RADRPT ---
PROCEDURE: US Pelvis Transabdominal and Transvaginal. CLINICAL INDICATION: Pelvic pain. TECHNIQUE: Multiple sonographic images of the pelvis were obtained utilizing ramachandran scale, Doppler a nd color flow imaging with transabdominal and endovaginal technique. The images were reviewed on a PACS workstation. COMPARISON: None. FINDINGS: The uterus is visualized and measures 11.8 x 5.9 x 8.7 cm. The endometrial echo complex measures 26. 2 mm in thickness. Diffuse heterogeneity of the endometrium is seen. No grossly increased vascularit y in the endometrium is seen. No uterine masses are identified. The ovaries are not well visualized. No adnexal masses or pelvic free fluid are noted. IMPRESSION: Markedly thickened, heterogeneous endometrium. Finding could reflect clotted blood products in the e ndometrial canal. Retained products of conception cannot be excluded. Consultation with gynecology a nd potential correlation with dilatation and curettage can be considered. Ovaries not well visualized. If characterization of this structure is needed repeat exam or CT/MRI is recommended. If further characterization of the organs of the pelvis is needed MRI should be considered. RPTAT: AA .Nicolas Lebron MD, MD Date Time Electronically viewed and signed by .Nicolas Lebron MD, MD on 11/30/2016 16:28 .P/
[2016-11-30 16:40] LABS: BASOPHIL # 0.1 10^3/ul (0.0-0.1); BASOPHILS % 0.5 % (0.0-2.0); EOSINOPHILS # 0.4 10^3/ul (0.0-0.5); EOSINOPHILS % 3.8 % (0.0-7.0); HEMATOCRIT 39.7 % (37.0-47.0); HEMOGLOBIN 13.2 g/dl (12.0-16.0); LYMPHOCYTES # 2.1 10^3/ul (0.8-2.9); LYMPHOCYTES % 18.9 % (15.0-51.0); MEAN CORPUSCULAR HEMOGLOBIN 29.9 pg (29.0-33.0); MEAN CORPUSCULAR HGB CONC 33.2 g/dl (32.0-37.0); MEAN CORPUSCULAR VOLUME 89.8 fl (82.0-101.0); MEAN PLATELET VOLUME 9.9 fl (7.4-10.4); MONOCYTE # 0.5 10^3/ul (0.3-0.9); MONOCYTES % 4.7 % (0.0-11.0); NEUTROPHIL # 7.9 10^3/ul (1.6-7.5); NEUTROPHILS % 71.7 % (39.0-77.0); PLATELET COUNT 347 10^3/UL (140-415); RED BLOOD COUNT 4.42 10^6/ul (4.20-5.40); RED CELL DISTRIBUTION WIDTH 13.4 % (11.5-14.5)
[2016-11-30 16:54] LABS: ADD UMIC YES; UR ASCORBIC ACID NEGATIVE (NEGATIVE); UR BACTERIA FEW /HPF (NONE SEEN); UR BILIRUBIN (Dip) NEGATIVE (NEGATIVE); UR BLOOD (Dip) 3+ mg/dL (NEGATIVE); UR CLARITY SLIGHTLY CLOUDY (CLEAR); UR COLOR YELLOW (YELLOW); UR GLUCOSE (Dip) NEGATIVE (NEGATIVE); UR KETONES (Dip) NEGATIVE (NEGATIVE); UR LEUKOCYTE ESTERASE (Dip) TRACE Leu/ul (NEGATIVE); UR MUCUS FEW /HPF (NONE SEEN); UR NITRITE (Dip) NEGATIVE (NEGATIVE); UR RBC 4 /HPF (0-5); UR SPECIFIC GRAVITY (Dip) 1.025 (1.003-1.030); UR TOTAL PROTEIN (Dip) NEGATIVE (NEGATIVE); UR UROBILINOGEN (Dip) NEGATIVE (NEGATIVE)
[2016-11-30 16:59] LABS: ALBUMIN 3.9 g/dl (3.3-4.9); ALBUMIN/GLOBULIN RATIO 1.02; BILIRUBIN,INDIRECT 0.2 mg/dl (0-1.1); BILIRUBIN,TOTAL 0.2 mg/dl (0.2-1.3); CALCIUM 9.2 mg/dl (8.4-10.2); CREATININE 0.58 mg/dl (0.44-1.00); TOTAL PROTEIN 7.7 g/dl (6.1-8.1)
[2016-11-30] MEDS ORDERED: CEPH-443 PO (17:22)
[2016-11-30 17:42] VITALS: BP 125/74; PULSE 72; RESP 19; TEMP 98.5
== END 2016-11-30 17:43 | disposition home or self-care (01) ==
LOC: FTE 14:49
DX: R10.2 Pelvic and perineal pain (principal)
CPT/HCPCS: 76830; 76856; 80053; 81001; 83690; 85025; Z7502; 81003